=== PATIENT | male | born 1960 | race African-American/Black ===

== ENCOUNTER 2017-06-23 13:06 | Emergency (ER) | payer MEDICARE, MEDICAID ==
[2017-06-23 13:42] LABS: POC GLUCOSE 383 mg/dL (70-99)
[2017-06-23 13:48] LABS: ADD MAN DIFF? NO
[2017-06-23 13:53] LABS: BASO # 0.1 x10^3/uL (0.0-0.2); BASO % 1 % (0-3); EOS % 1 % (0-3); HEMATOCRIT 44.3 % (39.0-53.0); HEMOGLOBIN 14.8 g/dL (13.0-17.5); LYMPH # 1.7 x10^3/uL (1.0-4.8); LYMPH % 17 % (24-48); MEAN CORPUSCULAR HEMOGLOBIN 29 pg (25-35); MEAN CORPUSCULAR HGB CONC 33 g/dL (31-37); MEAN CORPUSCULAR VOLUME 88 fL (79-100); MONO % 10 % (0-9); NEUT % 71 % (31-73); PLATELET COUNT 198 x10^3/uL (140-400); RED BLOOD COUNT 5.03 x10^6/uL (4.30-5.70); RED CELL DISTRIBUTION WIDTH 14.1 % (11.5-14.5)
[2017-06-23 13:54] LABS: BILIRUBIN,URINE NEGATIVE (NEG); GLUCOSE,URINE >=1000 mg/dL (NEG); NITRITE,URINE NEGATIVE (NEG); PH,URINE 5.5; PROTEIN,URINE NEGATIVE (NEG-TRACE); UROBILINOGEN,URINE 0.2 mg/dL (0.2 mg/dL)
[2017-06-23] MEDS: oxyCODONE/APAP 10/325 1 TAB TABLET PO (13:58)
[2017-06-23] MEDS: IV NORMAL SALINE 1000ML BAG 1,000 ML IV (13:58)
[2017-06-23 14:00] LABS: ANION GAP 12 (6-14); BLOOD UREA NITROGEN 17 mg/dL (8-26); BUN/CREATININE RATIO 12 (6-20); CALCIUM 9.5 mg/dL (8.5-10.1); CARBON DIOXIDE 27 mmol/L (21-32); CHLORIDE 94 mmol/L (98-107); CREATININE 1.4 mg/dL (0.7-1.3); GFR 51.9; GLUCOSE 432 mg/dL (70-99); POTASSIUM 3.6 mmol/L (3.5-5.1); SODIUM 133 mmol/L (136-145)
[2017-06-23 14:06] LABS: ALBUMIN 3.7 g/dL (3.4-5.0); ALK PHOS 148 U/L (46-116); ALT (SGPT) 23 U/L (16-63); AST (SGOT) 11 U/L (15-37); TOTAL BILIRUBIN 0.5 mg/dL (0.2-1.0); TOTAL PROTEIN 7.4 g/dL (6.4-8.2)
[2017-06-23 14:13] LABS: RBC,URINE 0 /HPF (0-2)
[2017-06-23 14:14] LABS: BACTERIA,URINE FEW /HPF (0-FEW); SQUAMOUS EPITHELIAL CELL,UR OCC /LPF
[2017-06-23 15:57] LABS: POC GLUCOSE 361 mg/dL (70-99)
== END 2017-06-23 16:15 | disposition home or self-care (01) ==
LOC: ER 13:06
DX: E11.65 Type 2 diabetes mellitus with hyperglycemia (principal); M79.602 Pain in left arm; M79.601 Pain in right arm; M79.605 Pain in left leg; M79.604 Pain in right leg; G89.29 Other chronic pain; I10 Essential (primary) hypertension; J45.909 Unspecified asthma, uncomplicated; E11.40 Type 2 diabetes mellitus with diabetic neuropathy, unspecified; F12.10 Cannabis abuse, uncomplicated
CPT/HCPCS: 36415; 80053; 81001; 82962; 85025; 96360; 96361; 99285-25; J7030

== ENCOUNTER 2019-02-06 09:36 | Emergency (ER) | payer BC, MEDICAID, MEDICARE ==
[~2019-02-06] VITALS: Ht 172.7 cm; Wt 102.1 kg
[~2019-02-06 09:36] MED LIST: GLYB2.5T2 PO; METF500T16 PO
[2019-02-06 09:40] VITALS: BP 146/78
--- NOTE | 2019-02-06 10:12 | PHYS DOC ---
Past Medical History Past Medical History: Asthma, Diabetes-Type II, Hypertension, Other Additional Past Medical Histor: NEUROPATHY Past Surgical History: Other Additional Past Surgical Histo: NECK, BACK, CARPAL TUNNEL SX Alcohol Use: Occasionally Drug Use: Marijuana Adult General Chief Complaint Chief Complaint: KNEE INJURY HPI HPI Patient is a 58 year old AA male who presents to the ER with complaints of R knee pain and swelling for the last 3 days. Pt states that on 02/03/19 he tripped over a median in his parking lot and it caused him to fall. He states he has been limping ever since and reports that the knee is increasingly swollen. Currently, he rates his pain a 9/10, there are no alleviating factors. The pain increases with weightbearing and ambulation. ROS Patient denies any numbness, tingling, or decreased range of motion of the right knee. He denies any head injury or back pain from the fall. All other ROS is neg unless otherwise noted in HPI. Review of Systems Review of Systems See Above Current Medications Current Medications Current Medications Medications (Trade) Dose Ordered Sig/Lukas Start Time Stop Time Status Last Admin Dose Admin Acetaminophen/ Hydrocodone Bitart (Lortab 5/325) 1 tab 1X ONCE 02/06/19 10:15 02/06/19 10:16 DC 02/06/19 10:38 1 TAB Allergies Allergies Allergies Coded Allergies Type Severity Reaction Last Updated Verified No Known Drug Allergies 06/23/17 No Physical Exam Physical Exam See Above Constitutional: Well developed, well nourished, no acute distress, non-toxic appearance. [] HENT: Normocephalic, atraumatic, bilateral external ears normal,nose normal. [] Eyes: conjunctiva normal, no discharge. [] Neck: Normal range of motion, no stridor. [] Cardiovascular:Heart rate regular rhythm Lungs & Thorax: Respirations even and unlabored, no retractions, no respiratory distress Skin: Warm, dry, no erythema, no rash, no bruising. [] Extremities: R knee: anterior tenderness to palpation, 2+ edema, no erythema, no cyanosis, ROM intact, negative anterior and posterior drawer testing [] Neurologic: Alert and oriented X 3, no focal deficits noted. [] Psychologic: Affect normal, judgement normal, mood normal. [] Current Patient Data Vital Signs Vital Signs Date Time Temp Pulse Resp B/P (MAP) Pulse Ox O2 Delivery O2 Flow Rate FiO2 02/06/19 09:40 98.4 97 18 146/78 (100) 98 Room Air 98.4 EKG EKG [] Radiology/Procedures Radiology/Procedures PROCEDURE: KNEE RIGHT 3V EXAM: AP, oblique and lateral views of the right knee DATE: 02/06/2019 10:15 AM INDICATION: Right knee pain for 3 days COMPARISON: No Prior FINDINGS/ IMPRESSION: There is a small to moderate right knee joint effusion. Patellar enthesopathy. Mild decreased bone mineral density. No definite displaced knee fracture is identified. If there is persistent clinical concern for fracture, CT is recommended.[] Course & Med Decision Making Course & Med Decision Making Pertinent Labs and Imaging studies reviewed. (See chart for details) dx: right knee pain Dragon Disclaimer Dragon Disclaimer This electronic medical record was generated, in whole or in part, using a voice recognition dictation system. Departure Departure Impression: Primary Impression: Pain of right knee after injury Additional Impression: Knee effusion, right Disposition: 01 HOME, SELF-CARE Condition: STABLE Referrals: MIKIE WELLS MD Patient Instructions: Knee Effusion, [id number] Additional Instructions: There was no fracture on your x-ray. Tylenol or ibuprofen as needed for pain. Recommend application of ice, and elevation of affected leg. Wear the knee immobilizer as needed for comfort. Follow up with Dr. Wells if symptoms persist, return to the ER if symptoms worsen. Problem Qualifiers SARAN CHACON APRN Feb 06, 2019 10:11
[2019-02-06] MEDS ORDERED: HYDROcodone/APAP 5/325MG 1 TAB TABLET PO ONE (10:15)
--- NOTE | 2019-02-06 11:33 | RAD ---
EXAM: AP, oblique and lateral views of the right knee DATE: 02/06/2019 10:15 AM INDICATION: Right knee pain for 3 days COMPARISON: No Prior FINDINGS/ IMPRESSION: There is a small to moderate right knee joint effusion. Patellar enthesopathy. Mild decreased bone mineral density. No definite displaced knee fracture is identified. If there is persistent clinical concern for fracture, CT is recommended. Electronically signed by: Dony Slater MD (02/06/2019 11:30 AM) [facility]
== END 2019-02-06 11:59 | disposition home or self-care (01) ==
LOC: ER 09:36
DX: S89.91XA Unspecified injury of right lower leg, initial encounter (principal); M25.461 Effusion, right knee; I10 Essential (primary) hypertension; E11.40 Type 2 diabetes mellitus with diabetic neuropathy, unspecified; J45.909 Unspecified asthma, uncomplicated; W01.0XXA Fall on same level from slipping, tripping and stumbling without subsequent striking against object, initial encounter; Y93.89 Activity, other specified; Y92.481 Parking lot as the place of occurrence of the external cause; Y99.8 Other external cause status
CPT/HCPCS: 29505; 73562; 99284-25